=== PATIENT | male | born 1985 | race Caucasian/White ===

== ENCOUNTER 2017-11-06 08:08 | Day surgery (SDC) | payer BC ==
[~2017-11-06 08:08] MED LIST: Buffered Lidocaine 0.9% SYRIN* 5 ML/SYR SYRINGE INTRADERM ONE; Famotidine TAB* 20 MG PO ONE; Metoclopramide TAB* 10 MG PO ONE
[2017-11-06] MEDS ORDERED: Metoclopramide TAB* 10 MG ONE (08:23)
[2017-11-06] MEDS ORDERED: Famotidine IV* 10 MG/ML 2 ML (20 mg) ONE (08:23)
[2017-11-06] MEDS ORDERED: Clindamycin 900 MG IVPREMIX(* 900 MG/50 ML SDV IV ONE (08:23)
[2017-11-06] MEDS ORDERED: Famotidine TAB* 20 MG ONE (08:45)
[2017-11-06] MEDS ORDERED: Ondansetron INJ* 2 MG/ML VIAL ONE ×2 (09:56→12:01)
[2017-11-06] MEDS ORDERED: Ketorolac INJ* 30 MG/ML 1 ML VIAL ONE ×2 (09:56→12:01)
[2017-11-06] MEDS ORDERED: Dexamethasone IV* 4 MG/ML 1 ML (4 MG) ONE ×2 (09:56→12:01)
[2017-11-06] MEDS ORDERED: Lidocaine 2% PF * 5 ML VIAL ONE ×2 (09:56→12:00)
[2017-11-06] MEDS ORDERED: fentaNYL* 50 MCG/ML 2 ML VIAL (100 MCG VIAL) ONE ×4 (09:56→13:47)
[2017-11-06] MEDS ORDERED: Midazolam* 1 MG/ML 5 ML VIAL (5 MG) ONE ×2 (09:56→09:57)
[2017-11-06] MEDS ORDERED: KETAMINE HCL* 50 MG/ML 10 ML VIAL ONE ×2 (09:56→09:57)
[2017-11-06] MEDS ORDERED: Propofol* 10 MG/ML 20 ML BTL IV PUSH ONE ×2 (09:56→12:01)
[2017-11-06] MEDS ORDERED: Ropivacaine (OR use only) 2 MG/ML 10 ML ONE (11:37)
[2017-11-06] MEDS ORDERED: Morphine VIAL* 10 MG/ML 1 ML VIAL ONE (11:44)
[2017-11-06] MEDS ORDERED: Bupivacaine 0.25% SDV* 30 ML ONE (12:00)
[2017-11-06] MEDS ORDERED: oxyCODONE/Acetamin 5/325 MG* TAB PO PRN (13:14)
[2017-11-06] MEDS ORDERED: DiMENhydriNATE IV* 50 MG/ML VIAL IV PUSH PRN (13:14)
[2017-11-06] MEDS ORDERED: Morphine INJ* 2 MG/ML 1 ML SYRINGE (TWO MG - NEW SYRINGE VERSION) IV PRN (13:14)
[2017-11-06] MEDS ORDERED: Naloxone* 0.4 MG/ML 1 ML VIAL IV PRN (13:14)
[2017-11-06] MEDS ORDERED: PROCHLORPERAZINE INJ 5 MG/ML 2 ML VIAL IV PRN (13:14)
[2017-11-06] MEDS: fentaNYL* 50 MCG/ML 2 ML VIAL (100 MCG VIAL) IV PRN ×4 (13:47→14:24)
[2017-11-06 16:18] VITALS: BP 140/79
--- NOTE | 2017-11-07 01:48 | OP ---
DATE OF OPERATION: 11/06/17 - [facility] DATE OF : 81 SURGEON: Markell Chan MD [employer] TE[employer]ER: Jaquelin Chung PA-C PRE-OP DIAGNOSES: Left planovalgus deformity hindfoot, previous posterior tibial construction. POST-OP DIAGNOSES: Left planovalgus deformity hindfoot, previous posterior tibial construction. OPERATIVE PROCEDURE: Left subtalar fusion with calcaneal osteotomy and tibial bone graft and a cotton osteotomy. DESCRIPTION OF PROCEDURE: The patient was taken to the operating room where a lateral longitudinal incision was made over the sinus tarsi. The peroneal tendons were mobilized so that we could perform the calcaneal osteotomy. There were since performed from lateral to medial using a microsagittal saw inferior to peroneal tendons. We displaced the ostectomy 4 cm medially pinning this partially with the guide pin for the 6.7 screws. We then prepared the subtalar joint for arthrodesis using the power elaine, packing some cancellous bone, allograft and small amount of allograft from the tibial tubercle. Tibial tubercle harvest was performed as follows. At Gerdy's tubercle a 4 cm oblique incision was made and we split the periosteum over the tubercle. A power elaine was used to open the lateral cortex and then we harvested cancellous bone with the medium size curette. We packed allograft into the defect then once the bone was harvested closing the periosteum subcu with 2-0 Vicryl and antolin for the skin. We then advanced the pin across the subtalar joint up into the head of the talus. We put in additional screws well using the guidepin parallel. Both the pin positions were verified on C-arm. We then exchanged with the 6.7 mm cannulated screws, one over a washer giving excellent compression and fixation of both surgery areas. We then closed the lateral wound with 0 Vicryl sutures. We did perform a partial calcaneal ostectomy, superficial to the osteotomy to decompress the sub-fibular area. [place] were applied in the skin and Prolene sutures for the heel. We then made a longitudinal incision over the first metatarsal and created an osteotomy at this level. I removed a small wedge with the base on the planter aspect closing this down over some of the allograft. Arthrex plate was then placed over the dorsal side with the lag screw through the plate. Combination of fixation of locking and nonlocking screws were performed and this showed good fixation clinically. We then closed this wound with Vicryl sutures, nylon and compression dressing, plaster splint was applied. [id number]/[facility] #: [id number] [place]
== END 2017-11-06 16:21 | disposition home or self-care (01) ==
LOC: OR 08:08
PROVIDERS: ATTEND Orthopaedic Surgery
DX: Q66.52 Congenital pes planus, left foot (principal); G47.33 Obstructive sleep apnea (adult) (pediatric); G44.029 Chronic cluster headache, not intractable; E66.9 Obesity, unspecified; I10 Essential (primary) hypertension; K21.9 Gastro-esophageal reflux disease without esophagitis; K76.0 Fatty (change of) liver, not elsewhere classified
CPT/HCPCS: A9270-GY; C1713; C1776; C9359; J1100; J1885; J2250; J2270; J2405; J2704; J2795; J3010

== ENCOUNTER 2018-07-02 06:40 | Day surgery (SDC) | payer BC ==
[~2018-07-02 06:40] MED LIST changes: -Buffered Lidocaine 0.9% SYRIN* 5 ML/SYR SYRINGE INTRADERM ONE; +Buffered Lidocaine 1% SYRIN* 1 ML/SYRINGE INTRADERM ONE; +Dexamethasone IV* 4 MG/ML 1 ML (4 MG) IV SLOW PU ONE; +Lactated Ringers 1000 ML Bag* 1,000 ML IV SCH; +Metoclopramide IV* 5 MG/ML 2 ML VIAL IV SLOW PU ONE; -Metoclopramide TAB* 10 MG PO ONE
[2018-07-02] MEDS ORDERED: Metoclopramide IV* 5 MG/ML 2 ML VIAL ONE (07:09)
[2018-07-02] MEDS ORDERED: Dexamethasone IV* 4 MG/ML 1 ML (4 MG) ONE (07:09)
[2018-07-02] MEDS ORDERED: Clindamycin 900 MG IVPREMIX(* 900 MG/50 ML SDV IV ONE (07:10)
[2018-07-02] MEDS ORDERED: Famotidine TAB* 20 MG ONE (07:10)
[2018-07-02] MEDS ORDERED: Buffered Lidocaine 1% SYRIN* 1 ML/SYRINGE INTRADERM ONE (07:41)
[2018-07-02] MEDS ORDERED: Midazolam* 1 MG/ML 2 ML VIAL (2 MG) ONE (08:00)
[2018-07-02] MEDS ORDERED: Propofol* 10 MG/ML 20 ML BTL ONE ×2 (08:00→10:00)
[2018-07-02] MEDS ORDERED: Succinylcholine* 20 MG/ML 10 ML VIAL ONE (08:00)
[2018-07-02] MEDS ORDERED: fentaNYL* 50 MCG/ML 2 ML VIAL (100 MCG VIAL) ONE ×2 (08:00→09:34)
[2018-07-02] MEDS ORDERED: Lidocaine 2% PF * 5 ML VIAL ONE (08:00)
[2018-07-02] MEDS ORDERED: Bupivacaine 0.5%* 50 ML VIAL ONE (09:00)
[2018-07-02] MEDS ORDERED: DiMENhydriNATE IV* 50 MG/ML VIAL IV PUSH PRN (09:05)
[2018-07-02] MEDS ORDERED: Ibuprofen TAB* 600 MG PO PRN (09:05)
[2018-07-02] MEDS ORDERED: fentaNYL* 50 MCG/ML 2 ML VIAL (100 MCG VIAL) IV PRN (09:05)
[2018-07-02] MEDS ORDERED: Acetaminophen TAB* 325 MG PO PRN (09:05)
[2018-07-02] MEDS ORDERED: HYDROmorphone INJ1* 1 MG/ML SYRINGE IV PRN (09:05)
[2018-07-02] MEDS ORDERED: Naloxone* 0.4 MG/ML 1 ML VIAL IV PRN (09:05)
[2018-07-02] MEDS ORDERED: HYDROcodone/ACETAMIN 5-325 MG* 1 TAB PO PRN (09:05)
[2018-07-02] MEDS ORDERED: Rocuronium* 10 MG/ML VIAL ONE (09:32)
[2018-07-02] MEDS ORDERED: Sugammadex * 200 MG/2 ML VIAL IV PUSH ONE (09:55)
[2018-07-02] MEDS ORDERED: Ondansetron INJ* 2 MG/ML VIAL ONE (09:55)
[2018-07-02] MEDS ORDERED: Ibuprofen TAB* 600 MG ONE (10:59)
[2018-07-02] MEDS ORDERED: HYDROcodone/ACETAMIN 5-325 MG* 1 TAB ONE (10:59)
[2018-07-02 12:56] VITALS: BP 116/77
--- NOTE | 2018-07-02 23:03 | OP ---
DATE OF OPERATION: 07/02/18 - [facility] DATE OF : 81. ATTENDING SURGEON: Dr. Markell Chan. MACHINE CANDLE MOLDER: Jaquelin Chung PA-C. PRE-OP DIAGNOSIS: Painful hardware, left heel and midfoot, left foot. POST-OP DIAGNOSIS: Painful hardware, left heel and midfoot, left foot. OPERATIVE PROCEDURE: Removal of hardware, left heel and left midfoot. DESCRIPTION OF PROCEDURE: The patient was taken to the operating room where we probed the heel on the left side with a guidepin. We located the heads of the two 6.5 mm cannulated screws, both were cannulated with a guidepin and then a small 2-cm incision made. We removed both screws as well as the washer. Closure consisted of interrupted 2-0 Prolene vertical mattress sutures. A longitudinal incision was made over the midfoot as well and by reflecting the flap dorsally, we were able to isolate the first metatarsal plate. This was removed with a small star screwdriver. The wound was then irrigated and closed with interrupted Monocryl and nylon for the skin, a compression dressing applied. [id number]/[facility] #: [id number] [facility]ITAL[facility]
--- NOTE | 2018-07-03 11:24 | PN ---
Progress Note - Progress Note Date of Service: 07/03/18 Note: Anestheisa Follow-up: Mr. Durand is a 33 y/o male who underwent a left foot hardware removal under general anesthesia with endotracheal tube intubation on 07/02/18. With a follow- up phone call the pt stated that "both of his eyes are red and that one of his teeth is chipped". Upon further questioning the pt states that this morning he noticed that both of his eyes are inflammed, but he denies visionary changes such as blurry vision or double vision and denies eye pain. He also states that his front left incisor is chipped (#9). The pt's emergence had no serious events, however he did have significant bucking against the ventilator during stage II of emergence. Based on the pt's BMI, early attempts of having the pt breathe spontaneously without ventilator support led to episodes of rapid O2 desaturation (This is expected with significantly obese people as their pulmonary reserve is decreased and significant weight on their chest leads to a restrictive pulmonary pathology). Emergence was optimized by having the pt on 100% FiO2 and being placed in reverse-trendelenburg position. It is possible that during this time period the pt may have sustained bilateral subconjunctival hemorrhage due to increased intra-ocular pressure during emergence. The pt was reassured that this type of ocular pathology resolves spontaneously in a few days to weeks and that if he begins to experience visionary changes or pain to please call us so we could refer to him an opthalmologist for a proper examination. In regards to the pt's chipped tooth #9, the pt's dentition was questionable as he had tooth #8 missing already. The pt's airway was difficult with a direct laryngoscopy and the pt required video laryngoscopy to secure his airway. The intbuation was atraumatic to teeth. It is possible that the pt may have sustained dental injury during emergence as well. Measures were taken to protect this patient's teeth using an oropharyngeal airway as a bite block to prevent the pt biting down on his tounge or damaging teeth, but dental injury may have still occured. The pt was given the number to our office if he decides to have a dentist look and possibly repair that specific tooth and that [facility] may help with partial of full reimbursement of repair of tooth #9. Ok Mandujano MD
== END 2018-07-02 12:45 | disposition home or self-care (01) ==
LOC: OR 06:40
PROVIDERS: ATTEND Orthopaedic Surgery
DX: T84.84XA Pain due to internal orthopedic prosthetic devices, implants and grafts, initial encounter (principal); Y83.1 Surgical operation with implant of artificial internal device as the cause of abnormal reaction of the patient, or of later complication, without mention of misadventure at the time of the procedure; Z47.2 Encounter for removal of internal fixation device; Z98.1 Arthrodesis status; G47.33 Obstructive sleep apnea (adult) (pediatric); K21.9 Gastro-esophageal reflux disease without esophagitis
CPT/HCPCS: 88300; A9270-GY; J0330; J1100; J2250; J2405; J2704; J2765; J3010

== ENCOUNTER 2018-07-17 14:27 | Emergency (ER) | payer BC ==
--- OUTSIDE RECORDS SUMMARY | 2018-07-17 14:45 | XMS REPORT | Continuity of Care Document ---
:1985 External Reference #:[id number] Author Name Blake Gardner M.D. Address [address] [place] [address] Care Team Providers Name Role Phone Karin Be M.D. Primary Care Physician Unavailable Payers Date Identification Numbers Payment Provider Subscriber Policy Number: [id number] [facility] Blue Durand PayID: [id number] [id number] [place] [id number] Advance Directives Description No Information Available Problems Active Problems Provider Date Cluster headache Onset: Gastroesophageal reflux disease Onset: Non-alcoholic fatty liver Onset: Squamous blepharitis Blake Gardner M.D. Onset: 07/13/2018 Conjunctival hemorrhage Blake Gardenr M.D. Onset: 07/13/2018 Family History Date Family Member(s) Observation Comments Father No Current Problems Mother No Current Problems Social History Type Date Description Comments Sex Unknown Marital Status Legal Status: Occupation [employer] Work Status Full-Time Employment ETOH Use Rarely consumes alcohol Tobacco Use Start: Unknown Patient has never smoked Smoking Status Reviewed: 07/13/18 Patient has never smoked Allergies, Adverse Reactions, Alerts Active Allergies Reaction Severity Comments Date Omeprazole 07/13/2018 Amoxicillin 07/13/2018 Penicillin 07/13/2018 Azithromycin 07/13/2018 Medications Description No Information Immunizations Description No Information Available Vital Signs Description No Information Available Results Description No Information Available Procedures Description No Information Available Encounters Description No Information Available Plan of Treatment 07/13/2018 - Blake Gardner M.D.H11.33 Conjunctival hemorrhage, bilateralComments:Smoking can increase the risk of developing or worsening any eye related disease, as well as affect your overall health. If you are a smoker , we strongly recommend that you quit.If you are not a smoker, we strongly recommend that you do not start. A conjunctival hemorrhage is a broken blood vessel on the surface of your eye usually caused by dryness or straining. It is like a bruise and it is not harmful. If the eye is uncomfortable at all, we recommend you use tear drops.H01.021 Squamous blepharitis right upper eyelidComments:Dr. Gardner has diagnosed you with Blepharitis. This is common condition and can be managed with a few simple steps each day. -Use artificial tear drops throughout the day. Because the tear film is evaporating quicker than normal, you will need to supplement with tear drops to keep the ocular surface comfortable. -Use a lid scrub to remove debris from the lashes. [employer] is a brand we recommend to use.-Examine your environment. The weather for the area we live in often goes from one extreme to the other, forcing us to use air conditioners and heaters often. This can dry the air in the house out, so sometimes using a humidifier can help your ocular surface as well.H01.024 Squamous blepharitis left upper ctiqdvJ93.022 Squamous blepharitis right lower [id number] Squamous blepharitis left lower eyelid
--- OUTSIDE RECORDS SUMMARY | 2018-07-17 14:45 | XMS REPORT | Continuity of Care Document ---
:1985 External Reference #:[id number] Author Name John Boykinalana Care Team Providers Name Role Phone Karin Be MD Primary Care Physician Unavailable Payers Date Identification Numbers Payment Provider Subscriber Effective: 2014 Policy Number: [id number] [employer]ets Papo Pierce PayID: [id number] [address] [address] [place] [address] Expires: 2013 Policy Number: [id number] Elfego Pierce Onset: 2010 PayID: [id number] [address] [place] [address] Effective: 2013 Policy Number: [id number] Romeroawa Pierce Expires: 2014 Group Name: [id number] [address] PayID: [id number] [place] [address] Advance Directives Description No Information Available Problems Date Description Provider Status Onset: 03/17/2015 Cluster headache Debbi Wright MD Active Onset: 03/17/2015 Obstructive sleep apnea syndrome Debbi Wright MD Active Family History Date Family Member(s) Observation Comments General diabetes General Migraine paternal grandmother General Stroke General Cancer General Non Viral Hepatitis General Dad had back pain Onset: (2014) (age Father Alive And Well 65 Years) Father Hypertension Father Migraine Onset: (2014) (age Mother Alive And Well 65 Years) Siblings 3 Siblings sister has ankylosing spondylitis Social History Type Date Description Comments Sex Unknown Lives With Occupation Currently Working Occupation 02/2015 [employer]. no children ETOH Use Denies alcohol use Tobacco Use Start: Unknown Patient has never smoked Recreational Drug Use Denies Drug Use Smoking Status Reviewed: 06/19/18 Patient has never smoked Exercise Type/Frequency Exercises regularly 4 days a week - weightlifting, 3 days a week - stationary bike 30mins Allergies, Adverse Reactions, Alerts Date Description Reaction Status Severity Comments 12/20/2012 Amoxicillin Active 12/20/2012 Penicillin Active 12/20/2012 Zithromax Active 02/19/2015 Omeprazole Active 02/19/2015 Amoxicillin Inactive Medications Medication Date Status Form Strength Qnty SIG Indications Ordering Provider Knee Scooter Active use as T84.84xA Markell 9 needed for Leora Chan non-weightbe aring Roller Walker Active Misc use for Q66.6 Markell 8 partial Leora Chan weight bearing Q66.52 Verapamil HCL 06/09/2016 Active Caps ER 200mg 30caps take one G44.009 Randy ER 24HR capsule by robert Balbuena MD every day Lansoprazole Active Capsules 30mg 1 tab po Unknown a day [facility] Fluticasone Active Suspension 50mcg/ Inhale 2 Unknown Proprionate Act Puffs Both Nasal Canal Point Sides Once Per Day Azelastine HCL Active Solution 0.15% one puff Unknown (Nasal) both sides twice a day Triamcinolone Active Powder prn bid Unknown Mcfp, Micronized Oxycodone HCL 11/06/2017 - Hx Tablets 5mg 30tabs 1 tabs by Markell 12/25/2017 mouth Dustin, every 4-6 M.D. hours as needed Verapamil HCL 04/25/2016 - Hx Caps ER 180mg 30caps 1 by mouth G44.Renae Werner ER 06/09/2016 24HR every day MD Adriana Verapamil HCL 09/30/2015 - Hx Caps ER 200mg 30caps take 1 by G44.009 Jaun S. ER 04/25/2016 24HR mouth cherelle Garcia M.DRadha Multivitamin 06/16/2015 - Hx Tablets 1 by mouth Debbi Adult 12/25/2017 daily MD Adriana Verapamil HCL 03/17/2015 - Hx Tablets 40mg 150tabs 2 by mouth G44.009 Keeley Denise 10/15/2015 every Stackman, morning, 2 M.D. every afternoon and 1 every night at bedtime No Active 04/10/2013 - Hx Unknown Medications 06/04/2013 Oxycodone HCL 12/20/2012 - Hx Tablets 5mg 60tabs take 1-2 Markell 04/10/2013 tabs po q Dustin, 4-6 hours M.D. prn pain Acid Keyboard Specialist - Hx Unknown 07/23/2013 Ibuprofen - Hx 200mg prn (not Unknown 10/20/2015 currently taking) Verapamil HCL - Hx Tablets 40mg 1 by mouth Unknown 03/17/2015 twice a day Fluticasone - Hx Suspension 50mcg/ 2 sprays Unknown Propionate 02/24/2015 Act each nostril daily as needed Famotidine - Hx Tablets 20mg take one Unknown 06/15/2015 tablet by mouth prn Magnesium - Hx Capsules 400mg 1 tab po Unknown 10/25/2017 once a day Immunizations Description No Information Available Vital Signs Date Vital Result Comment 06/19/2018 9:31am Height 69 inches 5'9" Weight 312.00 lb Heart Rate 72 /min BP Systolic Sitting 132 mmHg BP Diastolic Sitting 82 mmHg Body Temperature 97.4 F Pain Level 0 BMI (Body Mass Index) 46.1 kg/m2 06/05/2018 8:14am Height 69 inches 5'9" Weight 305.00 lb Heart Rate 68 /min BP Systolic 140 mmHg BP Diastolic 74 mmHg Respiratory Rate 18 /min Body Temperature 97.6 F Pain Level 4 BMI (Body Mass Index) 45.0 kg/m2 05/18/2018 11:37am Height 69 inches 5'9" Weight 305.00 lb Heart Rate 78 /min BP Systolic Sitting 130 mmHg BP Diastolic Sitting 82 mmHg Respiratory Rate 16 /min BMI (Body Mass Index) 45.0 kg/m2 05/08/2018 8:06am Height 69 inches 5'9" Heart Rate 72 /min BP Systolic 126 mmHg BP Diastolic 78 mmHg Body Temperature 97.3 F Pain Level 4 03/22/2018 11:11am Height 69 inches 5'9" Heart Rate 68 /min BP Systolic 126 mmHg BP Diastolic 82 mmHg Body Temperature 97.9 F Pain Level 4 02/20/2018 9:19am Height 69 inches 5'9" Heart Rate 60 /min BP Systolic 120 mmHg BP Diastolic 88 mmHg Body Temperature 98.0 F Pain Level 0 01/23/2018 8:31am Height 69 inches 5'9" Weight 288.00 lb Heart Rate 88 /min Respiratory Rate 18 /min Body Temperature 98.1 F Pain Level 0 BMI (Body Mass Index) 42.5 kg/m2 12/26/2017 11:40am Height 69 inches 5'9" Weight 288.00 lb Heart Rate 80 /min BP Systolic 132 mmHg BP Diastolic 82 mmHg Respiratory Rate 20 /min Body Temperature 97.5 F Pain Level 0 BMI (Body Mass Index) 42.5 kg/m2 12/08/2017 8:28am Height 69 inches 5'9" Heart Rate 52 /min Respiratory Rate 12 /min Body Temperature 97.4 F Pain Level 0 11/21/2017 8:55am Height 69 inches 5'9" Weight 300.00 lb Heart Rate 86 /min BP Systolic 134 mmHg BP Diastolic 78 mmHg Respiratory Rate 14 /min Body Temperature 99.6 F Pain Level 3 BMI (Body Mass Index) 44.3 kg/m2 10/26/2017 9:52am Height 69 inches 5'9" Weight 303.25 lb Heart Rate 76 /min BP Systolic 124 mmHg BP Diastolic 70 mmHg Respiratory Rate 12 /min Body Temperature 98.9 F Pain Level 0 BMI (Body Mass Index) 44.8 kg/m2 09/26/2017 8:31am Height 69 inches 5'9" Heart Rate 75 /min BP Systolic 128 mmHg BP Diastolic 82 mmHg Respiratory Rate 16 /min Body Temperature 98.0 F Pain Level 2 07/20/2017 9:56am Height 69 inches 5'9" Weight 311.00 lb BP Systolic 140 mmHg BP Diastolic 90 mmHg Respiratory Rate 16 /min Body Temperature 97.7 F Pain Level 2 BMI (Body Mass Index) 45.9 kg/m2 05/03/2017 11:11am Height 69 inches 5'9" Weight 319.00 lb Heart Rate 72 /min BP Systolic 134 mmHg BP Diastolic 88 mmHg BMI (Body Mass Index) 47.1 kg/m2 11/08/2016 9:07am Height 69 inches 5'9" Weight 296.00 lb with shoes Heart Rate 66 /min BP Systolic Sitting 126 mmHg LA lrg cuff BP Diastolic Sitting 88 mmHg LA lrg cuff BMI (Body Mass Index) 43.7 kg/m2 Ejection Fraction 60%-65% echo 04 10/24/2016 2:23pm Height 69 inches 5'9" Weight 290.00 lb Heart Rate 74 /min BP Systolic Sitting 132 mmHg BP Diastolic Sitting 78 mmHg Respiratory Rate 16 /min BMI (Body Mass Index) 42.8 kg/m2 04/25/2016 2:20pm Height 69 inches 5'9" Weight 290.00 lb Heart Rate 56 /min BP Systolic Sitting 126 mmHg BP Diastolic Sitting 80 mmHg Respiratory Rate 14 /min BMI (Body Mass Index) 42.8 kg/m2 11/05/2015 11:18am Height 69 inches 5'9" Weight 302.50 lb Heart Rate 72 /min BP Systolic Sitting 126 mmHg BP Diastolic Sitting 80 mmHg Respiratory Rate 14 /min Body Temperature 98.0 F Pain Level 5 BMI (Body Mass Index) 44.7 kg/m2 10/21/2015 11:20am Height 69 inches 5'9" Weight 301.25 lb with shoes Heart Rate 72 /min BP Systolic Sitting 142 mmHg LA lrg cuff BP Diastolic Sitting 78 mmHg LA lrg cuff BP Systolic Recheck 127 mmHg BP Diastolic Recheck 76 mmHg BMI (Body Mass Index) 44.5 kg/m2 Ejection Fraction 60%-65% echo 07/13/15 10/15/2015 10:52am Height 69 inches 5'9" Weight 301.12 lb Heart Rate 76 /min BP Systolic Sitting 124 mmHg BP Diastolic Sitting 80 mmHg Respiratory Rate 14 /min Body Temperature 98.0 F Pain Level 1 BMI (Body Mass Index) 44.5 kg/m2 09/30/2015 11:10am Height 69 inches 5'9" Weight 300.00 lb Heart Rate 68 /min BP Systolic Sitting 126 mmHg BP Diastolic Sitting 88 mmHg Respiratory Rate 14 /min BMI (Body Mass Index) 44.3 kg/m2 06/24/2015 3:51pm Height 69 inches 5'9" Weight 315.00 lb w/shoes Heart Rate 88 /min BP Systolic Sitting 140 mmHg LA lg cuff BP Diastolic Sitting 76 mmHg LA lg cuff BP Systolic Recheck 118 mmHg la repeat sitting BP Diastolic Recheck 79 mmHg la repeat sitting BMI (Body Mass Index) 46.5 kg/m2 Ejection Fraction 55-60 echo 04/02/15 06/16/2015 10:20am Height 69 inches 5'9" Weight 310.00 lb Patient reported Heart Rate 72 /min BP Systolic Sitting 142 mmHg BP Diastolic Sitting 76 mmHg Respiratory Rate 16 /min BMI (Body Mass Index) 45.8 kg/m2 03/17/2015 9:21am Height 69 inches 5'9" Weight 310.00 lb Heart Rate 68 /min BP Systolic Sitting 132 mmHg BP Diastolic Sitting 88 mmHg Respiratory Rate 14 /min BMI (Body Mass Index) 45.8 kg/m2 02/25/2015 2:25pm Height 69 inches 5'9" Weight 318.00 lb with shoes Heart Rate 80 /min BP Systolic 140 mmHg Ra lg cuff BP Diastolic 100 mmHg Ra lg cuff BP Systolic Sitting 132 mmHg LA lg cuff BP Diastolic Sitting 98 mmHg LA lg cuff Respiratory Rate 17 /min BMI (Body Mass Index) 47.0 kg/m2 12/04/2013 2:18pm Height 69 inches 5'9" Weight 295.00 lb Pain Level 9 BMI (Body Mass Index) 43.6 kg/m2 10/03/2013 2:11pm Height 69 inches 5'9" Weight 295.00 lb Heart Rate 56 /min BMI (Body Mass Index) 43.6 kg/m2 09/05/2013 1:16pm Height 69 inches 5'9" Weight 295.00 lb Pain Level 4 BMI (Body Mass Index) 43.6 kg/m2 08/15/2013 1:21pm Height 69 inches 5'9" Weight 295.00 lb Heart Rate 80 /min BMI (Body Mass Index) 43.6 kg/m2 08/07/2013 2:13pm Height 69 inches 5'9" Weight 295.00 lb Body Temperature 98.7 F BMI (Body Mass Index) 43.6 kg/m2 07/24/2013 3:16pm Height 69 inches 5'9" Weight 320.00 lb Heart Rate 80 /min BP Systolic 139 mmHg BP Diastolic 83 mmHg BMI (Body Mass Index) 47.3 kg/m2 07/16/2013 1:55pm Height 69 inches 5'9" Weight 300.00 lb Heart Rate 74 /min BP Systolic 140 mmHg BP Diastolic 81 mmHg BMI (Body Mass Index) 44.3 kg/m2 06/04/2013 2:33pm Height 69 inches 5'9" Weight 300.00 lb Heart Rate 78 /min BP Systolic 129 mmHg BP Diastolic 81 mmHg BMI (Body Mass Index) 44.3 kg/m2 05/23/2013 1:57pm Height 69 inches 5'9" Weight 300.00 lb Heart Rate 80 /min BP Systolic 141 mmHg BP Diastolic 82 mmHg BMI (Body Mass Index) 44.3 kg/m2 12/20/2012 2:41pm Height 69 inches 5'9" Weight 280.00 lb Heart Rate 81 /min BP Systolic 143 mmHg BP Diastolic 88 mmHg BMI (Body Mass Index) 41.3 kg/m2 Results Test Date Facility Test Result H/L Range Note Xray 05/31/[address] [facility] [address] Extremity <pending> [address] [place] [address] [phone] Laboratory test 11/06/2017 [facility] Cancellous Block SEE RESULTS 1, [address] [place] [address] NOTE> [phone] Cancellous Chips 5cc SEE RESULTS BELO <SEE NOTE> 3 DBX 2.5 SEE RESULTS BELO <SEE NOTE> 4 Urinalysis Profile 11/05/2015 [facility] Urine Color Yellow N [address] [place], [place] [id number] [phone] Urine Appearance Clear N Urine Specific [place] 1.021 N 1.010-1.030 Urine pH 7.0 N 5-9 Urine Urobilinogen Negative N Negative Urine Ketones Negative N Negative Urine Protein Negative N Negative Urine Leukocytes Negative N Negative Urine Blood Negative N Negative Urine Nitrite Negative N Negative Urine Bilirubin Negative N Negative Urine Glucose Negative N Negative Laboratory test 09/07/2015 [facility] Surgical SEE RESULT [address] [place] [address] [phone] Surgical 07/29/2013 [facility] S RUN DATE: [address] 07/30/ <[place] [address] NOTE> [phone] DBX 2.5 12/24/2012 [facility] DBX 2.5 [id number] <SEE NOTE> [place] [address] [phone] Cancellous Chips 12/24/2012 [facility] Cancellous Chips [id number] 5cc <SEE NOTE> [place] [address] [phone] 1 COGENITAL PES PLANUS, LEFT FOOT 2 SEE RESULTS BELOW [id number] CAN BLOCK TRANSFUSED 11/06/17 1159 3 SEE RESULTS BELOW [id number] CANC CHIPS 5CC TRANSFUSED 11/06/17 1159 [id number] CANC CHIPS 5CC TRANSFUSED 11/06/17 1159 4 SEE RESULTS BELOW [id number] DBX 2.5 TRANSFUSED 11/06/17 1159 5 SEE RESULT BELOW Name: PIERCEPAPO : [address]: Jarred Bustillos MD Acct: [id number] Unit: [id number] AGE: 30 Location: Re09/07/15 SEX: M Status: REG REF SPEC: [id number] STEPHANIE: 09/07/15-[address] [facility] DR: Sarath Cota MD REQ: [id number] RECD: 09/07/15-115 STATUS: DENNY LARSEN DR: Jarred Bustillos MD _ ORDERED: TRICHROME STAIN, LEVEL V FINAL DIAGNOSIS Liver, core biopsy: -- Chronic steatohepatitis (grade 0, stage 0); see comment. COMMENT: Histologic sections show cores of liver parenchyma with mild steatosis and minimal chronic inflammation surrounding portal tracts. Hepatocyte necrosis is absent. There is no evidence of significant bile duct inflammation or bile duct damage. There does not appear to be significant hemosiderin or bile pigment deposition. A trichrome stain, with appropriately reacting controls, shows normal-appearing portal tracts with no evidence of significant fibrosis. The histologic differential diagnosis includes alcoholic and non-alcoholic steatohepatitis and viral hepatitis. Clinical-pathologic correlation is recommended. PRE-OPERATIVE DIAGNOSIS R94.5, abnormal liver function studies GROSS DESCRIPTION The specimen is received in formalin with no source identified and a requisition labeled, Liver, and consists of a 1.5 x 0.1 cm oneill soft tissue core, which is submitted entirely in one cassette. Signed (signature on file) Hillary Hebert MD 1035 END OF REPORT * ML=Testing performed at Main Lab DEPARTMENT OF PATHOLOGY, [facility] [place], [place] [address] Rene Vladez M.D. Director [facility] # [id number] RUN DATE: 07/30/13 [facility] LAB LIVE PAGE 1 RUN TIME: 1636 [facility] [employer], [place] [address] Specimen Inquiry Name: PAPO PIERCE : [address]: Markell Chan MD Acct: [id number] Unit: [id number] AGE: 28 Location: OR Re07/29/13 SEX: M Status: REG [facility] SPEC: [id number] STEPHANIE: 07/29/13- SUBM DR: Markell Chan MD REQ: [id number] RECD: 07/29/13-1223 STATUS: DENNY LARSEN DR: No Primary Care Phys,NOPCP _ ORDERED: LEVEL I FINAL DIAGNOSIS Right ankle and mid foot, hardware removal: Foreign bodies (orthopedic hardware) as described below (Gross diagnosis). PRE-OPERATIVE DIAGNOSIS Painful hardware right foot. GROSS DESCRIPTION The specimen is received in formalin labeled Papo BarrieRadha Pierce, Hardware Right Ankle and Mid Foot and consists of two, 8.0 cm. silver metallic partially threaded Harvey headed screws. Received separately in the same container are four, gold metallic, threaded Harvey headed screws ranging from 1.7 cm. to 2.1 cm. in length. Received separately in the same container is a 1.3 x 0.1 cm. circular, silver metallic washer. Received separately in the same container is a 2.4 x 1.1 x 0.1 cm. green metallic irregular plate with five 0.3 cm. circular holes. The following inscription is identified [id number]. Per established hospital medical staff protocol no tissue is submitted. Gross only. Signed (signature on file) Hillary Hebert MD 1636 END OF REPORT * ML=Testing performed at Main Lab DEPARTMENT OF PATHOLOGY, [address] [place] [address] Rene Valdez M.D. Director [facility] # [id number] 7 [id number] DBX 2.5 TRANSFUSED 12/25/12 1433 8 [id number] CANC CHIPS 5CC TRANSFUSED 12/25/12 1433 [id number] CANC CHIPS 5CC TRANSFUSED 12/25/12 1433 Procedures Date Code Description Status 12/08/2017 90664 Short Leg Cast Completed 11/21/2017 91593 Short Leg Cast Completed 11/06/2017 50541 Artrodesis Subtalar Completed 11/06/2017 97295 Artrodesis Subtalar Completed 11/06/2017 26837 Osteotomy Tarsal Bones Completed 11/06/2017 66385 Osteotomy Tarsal Bones Completed 11/06/2017 Bone Graft Any Donor Area Minr Or SM (Eg Dowel Or Button) Completed 11/06/2017 Bone Graft Any Donor Area Minr Or SM (Eg Dowel Or Button) Completed 07/18/2017 84617 Biopsy Skin Lesion Single Completed 11/08/2016 52795 EKG Tracing & Interpretation Completed 10/21/2015 44861 EKG Tracing & Interpretation Completed 07/13/2015 69165 ECHO Transthoracic, Real-Time 2D With Doppler And Color Completed Flow 06/24/2015 36214 EKG Tracing & Interpretation Completed 04/02/2015 81485 ECHO Transthoracic, Real-Time 2D With Doppler And Color Completed Flow 04/01/2015 86799 ECHO Stress Test Incl Perf Contiuous ekg Monitoring W/Phys Completed Superv 02/25/2015 88181 EKG Tracing & Interpretation Completed 12/04/2013 17972 Rad Exam; Ankle Comp Completed 07/29/201366819 Removal Implant Deep Wire,Screw Nail,Monty Or Plate Completed 07/29/201383433 Removal Implant Deep Wire,Screw Nail,Monty Or Plate Completed 07/29/201365738 Removal Implant Deep Wire,Screw Nail,Monty Or Plate Completed 05/23/2013 15710 Rad Exam; Foot Limited Completed 04/10/2013 26760 Rad Exam; Foot Comp Completed 02/22/2013 61814 Rad Exam; Foot Comp Completed 02/22/2013 57392 Walking Cast Completed 01/18/2013 20475 Short Leg Cast Completed 01/04/2013 90750 Short Leg Cast Completed 12/25/201223533 Bone Graft, Any Donor Area Major Or Large Completed 12/25/201218540 Bone Graft, Any Donor Area Major Or Large Completed 12/25/2012 31214 Osteotomy Tarsal Bones Completed 12/25/2012 33359 Osteotomy Tarsal Bones Completed 12/25/2012 87021 Artrodesis Subtalar Completed 12/25/201299805 Artrodesis Subtalar Completed 11/12/2012 42770 Rad Exam; Foot Limited Completed 11/12/2012 33502 Rad Exam; Foot Limited Completed 11/12/2012 39973 Rad Exam; Ankle Comp Completed 11/12/2012 42252 Rad Exam; Ankle Comp Completed Encounters Type Date Location Provider Dx Diagnosis Office Visit 06/05/2018 [facility] T84.84xA Pain due to 8:00a Lona Chan M.D. internal orthopedic prosth dev/grft, init Office Visit 05/18/2018 [facility] Randy Balbuena G44.009 Cluster headache 11:30a Clinic syndrome, unspecified, not intractable Office Visit 05/08/2018 [facility] Q66.52 Congenital pes 8:00a Leora Evans, left foot Office Visit 03/22/2018 [facility] Q66.52 Congenital pes 10:45a Leora Evans, left foot Office Visit 02/20/2018 [facility] Q66.52 Congenital pes 8:45a Leora Evans, left foot M76.822 Posterior tibial tendinitis, left leg Office Visit 10/26/2017 9:45a [facility] [id number] Congenital pes Services Of Leora Evans, left foot Office Visit 09/26/2017 8:45a [facility] 66.Sheree Congenital pes Services Of Leora Evans, left foot Office Visit 07/26/2017 10:30a [facility] Kalin Goldman, L20.84 Intrinsic (allergic) eczema Office Visit 07/20/2017 9:30a [facility] M19.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 unspecified E66.9 Obesity, unspecified I10 Essential (primary) hypertension R94.31 Abnormal electrocardiogram [ECG] [EKG] Office Visit 10/24/2016 [facility] Debbi G44.009 Cluster headache 2:00p Ruy Wright MD syndrome, unspecified, not intractable G47.33 Obstructive sleep apnea (adult) (pediatric) Office Visit 04/25/2016 2:30p [facility] Debbi Wright G44.009 Cluster headache Services Of Director Of [employer] Research MD syndrome, unspecified, not intractable G47.33 Obstructive sleep apnea (adult) (pediatric) Office Visit 11/05/2015 11:20a Rheumatology Blake Leblanc R76.0 Raised antibody Services Of Director Of [employer] M.D. titer Office Visit 10/21/2015 11:40a [facility] Josh Adams R07.9 Chest painSuzie M.D. unspecified Office Visit 10/15/2015 11:00a Rheumatology Radha Kuhn6.0 Raised antibody Services Of [employer] Of [employer] M.D. titer M79.1 Myalgia K75.81 Nonalcoholic steatohepatitis (Reyes) M54.5 Low back pain L50.8 Other urticaria Office Visit 09/30/2015 11:00a [facility] Debbi Wright G44.009 Cluster headache Services Of Director Of [employer] MD syndrome, unspecified, not intractable G47.33 Obstructive sleep apnea (adult) (pediatric) Office Visit 06/24/2015 3:20p [facility] Josh Adams R06.02 Shortness of Leora Larsen breath E66.01 Morbid (severe) obesity due to excess calories I11.9 Hypertensive heart disease without heart failure R07.9 Chest pain, unspecified R01.1 Cardiac murmur, unspecified Office Visit 06/16/2015 10:30a [facility] Debbi Wright G44.009 Cluster headache Services Of Director Of [employer] MD syndrome, unspecified, not intractable G47.33 Obstructive sleep apnea (adult) (pediatric) Office Visit 03/17/2015 9:30a [facility] Debbi Wright G44.009 Cluster headache Services Of Director Of [employer] Research MD syndrome, unspecified, not intractable G47.33 Obstructive sleep apnea (adult) (pediatric) Office Visit 02/25/2015 2:20p [facility] Josh Adams R06.02 Shortness of MaLeora ramirez breath E66.01 Morbid (severe) obesity due to excess calories I10 Essential (primary) hypertension Office Visit 12/04/2013 [facility] Jonas5.17 Osteoarthrosis 2:15p Services Of Leora Chan Localized Prim Ankle [facility] Foot Office Visit 07/16/2013 [facility] Evans.17 Osteoarthrosis 2:15p Services Of Leora Chan Localized Prim Ankle [facility] Office Visit 06/04/2013 [facility] Evans.17 Osteoarthrosis 2:15p Services Of Leora Chan Localized Prim Ankle [facility] Office Visit 05/23/2013 [facility] Evans.17 Osteoarthrosis 2:00p Services Of Leora Chan Localized Prim Ankle [facility] Office Visit 04/10/2013 [facility] Evans.17 Osteoarthrosis 3:15p Services Of Leora Chan Localized Prim Ankle [facility] Office Visit 12/10/2012 [facility] 719.47 Pain Joint Ankle & 2:45p Services Of Leora Chan Foot [facility] 719.47 Pain Joint Ankle & Foot Office Visit 11/12/2012 8:15a [facility] Chan 719.47 Pain Joint Of Roger.MWillard [facility]y [facility]le [facility] Foot 719.47 Pain Joint Ankle & Foot Plan of Treatment Future Appointment(s):07/12/2018 8:15 am - [facility] M.D. at [facility]07/02/2018 8:30 am - ROSHNI Sanders at [facility]07/02/2018 8:30 am - [facility] Chan M.D. at [facility]06/19/2018 - [facility] Chan M.D.T84.84xA Pain due to internal orthopedic prosthetic devices, implantsNew Medication:Knee Scooter - use as needed for non-weightbearingFollow up:10-14 days postop
--- OUTSIDE RECORDS SUMMARY | 2018-07-17 14:45 | XMS REPORT | Continuity of Care Document ---
:1985 External Reference #:[id number] Author Name Amy Pan Care Team Providers Name Role Phone Karin Be MD Primary Care Physician Unavailable Payers Date Identification Numbers Payment Provider Subscriber Effective: 2014 Policy Number: [id number] [employer] Papo Pierce PayID: [id number] [address] [address] [place] [address] Expires: 2013 Policy Number: [id number] [employer] Papo Pierce Onset: 2010 PayID: [id number] [address] [place] [address] Effective: 2013 Policy Number: [id number] Romeroawa Pierce Expires: 2014 Group Name: [id number] [address] PayID: [id number] [place] [address] Advance Directives Description No Information Available Problems Active Problems Provider Date Cluster headache Debbi Wright MD Onset: 03/17/2015 Obstructive sleep apnea syndrome Debbi Wright MD Onset: 03/17/2015 Family History Date Family Member(s) Observation Comments [...] With Occupation Currently Working Occupation 02/2015 [employer]. no children ETOH Use Denies alcohol use Tobacco Use Start: Unknown Patient has never smoked Recreational Drug Use Denies Drug Use Smoking Status Reviewed: 07/12/18 Patient has never smoked Exercise Type/Frequency Exercises regularly 4 days a week - weightlifting, 3 days a week - stationary bike 30mins Allergies, Adverse Reactions, Alerts Active Allergies Reaction Severity Comments Date Amoxicillin 12/20/2012 Penicillin 12/20/2012 Zithromax 12/20/2012 Omeprazole 02/19/2015 Inactive Allergies Amoxicillin 02/19/2015 Medications Active Medications SIG Qnty Indications Ordering Provider Date Knee Scooter use as needed for T84.84xA Markell Chan, 06/19/2018 non-weightbearing M.D. Roller Walker use for partial Q66.6 Markell Chan, 12/26/2017 [facility] [place] M.D. Q66.52 Verapamil HCL ER take one capsule 30caps G44.009 Randy Balbuena MD 2016 200mg Caps by mouth every ER 24HR day Lansoprazole 1 tab po a day Unknown 30mg Capsules [facility] Fluticasone Inhale 2 Puffs Unknown Proprionate Nasal Warren Both Sides Once Per Day 50mcg/Act Suspension Azelastine HCL (Nasal) one puff both Unknown 0.15% sides twice a day Solution Triamcinolone prn bid Unknown [facility], Micronized Powder History Medications Oxycodone HCL 1 tabs by mouth 15tabs Markell Chan, 07/02/2018 - 5mg every 4-6 hours M.D. 07/11/2018 Tablets as needed Oxycodone HCL 1 tabs by mouth 30tabs Markell Chan, 11/06/2017 - 5mg every 4-6 hours M.D. 12/25/2017 Tablets as needed Verapamil HCL ER 1 by mouth every 30caps G44.009 Debbi Wright MD 2016 - day 06/09/2016 180mg Caps ER 24HR Verapamil HCL ER take 1 by mouth 30caps G44.009 Jaun Ng 09/30/2015 - daily Leora Garcia 04/25/2016 200mg Caps ER 24HR Multivitamin Adult 1 by mouth daily Debbi Wright MD 06/16/2015 - 12/25/2017 Tablets Verapamil HCL 2 by mouth every 150tabs G44.009 Keeley Denise 03/17/2015 - 40mg morning, 2 every Leora Hogan 10/15/2015 Tablets afternoon and 1 every night at bedtime No Active Unknown 04/10/2013 - Medications 06/04/2013 Oxycodone HCL take 1-2 tabs po 60tabs Markell Chan, 12/20/2012 - 5mg q 4-6 hours prn Leora 04/10/2013 Tablets pain Acid Sports Coordinator Unknown - 07/23/2013 Ibuprofen prn (not Unknown - 200mg currently taking) 10/20/2015 Verapamil HCL 1 by mouth twice Unknown - 40mg a day 03/17/2015 Tablets Fluticasone 2 sprays each Unknown - Propionate nostril daily as 02/24/2015 50mcg/Act needed Suspension Famotidine take one tablet Unknown - 20mg by mouth prn 06/15/2015 Tablets Magnesium 1 tab po once a Unknown - 400mg day 10/25/2017 Capsules Immunizations Description No Information Available Vital Signs Date Vital Result Comment 07/12/2018 8:17am Height 69 inches 5'9" Heart Rate 60 /min BP Systolic 142 mmHg BP Diastolic 90 mmHg Respiratory Rate 16 /min Body Temperature 98.0 F Pain Level 0 06/19/2018 9:31am Height 69 inches 5'9" Weight [...] Date Facility Test Result H/L Range Note Laboratory test 07/02/2018 [facility] Surgical SEE RESULT [address] [address] [phone] Xray 05/31/2018 [facility] CT Extremity <pending> [address] [place] [address] [phone] Laboratory test 11/06/2017 [facility] Cancellous Block SEE RESULTS 2, [address] BELO <[place] [address] NOTE> [phone] Cancellous Chips 5cc SEE RESULTS BELO <SEE NOTE> 4 DBX 2.5 SEE RESULTS BELO <SEE NOTE> 5 Urinalysis Profile 11/05/2015 [facility] Urine Color Yellow N [address] [place] [address] [phone] Urine Appearance Clear N Urine Specific Sinton 1.021 N 1.010-1.030 Urine pH 7.0 N 5-9 Urine Urobilinogen Negative N Negative Urine Ketones Negative N Negative Urine Protein Negative N Negative Urine Leukocytes Negative N Negative Urine Blood Negative N Negative Urine Nitrite Negative N Negative Urine Bilirubin Negative N Negative Urine Glucose Negative N Negative Laboratory test 09/07/2015 [facility] Surgical SEE RESULT [address] [place] [address] [phone] Surgical 07/29/2013 [facility] S RUN DATE: [address] [place] [address] NOTE> [phone] Cancellous Chips 12/24/2012 [facility] Cancellous Chips [id number] 5cc <SEE NOTE> [place] [address] [phone] DBX 2.5 12/24/2012 [facility] DBX 2.5 [id number] [address] <SEE NOTE> ONI Daugherty [phone] 1 SEE RESULT BELOW Name: PAP[place] PIER[place] : [address]: Markell Chan MD Acct: [id number] Unit: [id number] AGE: 33 Location: OR Re07/02/18 SEX: M Status: [facility] [place] SPEC: [id number] STEPHANIE: 07/02/18- [facility] DR: Markell Chan MD REQ: [id number] RECD: 07/02/18 STATUS: SOUT _ ORDERED: LEVEL 1 FINAL DIAGNOSIS Ankle, left, hardware removal: Foreign body (orthopedic hardware) (gross diagnosis) PRE-OPERATIVE DIAGNOSIS Pain due to internal orthopedic prosthetic devices GROSS DESCRIPTION The specimen is received fresh labeled, Left Ankle Hardware, and consists of seven screws, one washer and one plate as follows: Three purple metallic stellate headed fully threaded screws ranging from 2.3 x 0.5 cm to 3.3 x 0.5 cm, to phelps metallic stellate headed fully threaded screws measuring 2.0 by up to 0.5 cm and 3.0 by up to 0.5 cm, two partially threaded stellate headed luminal screws measuring 8.7 by up to 0.8 cm with a 0.3 cm central lumen. Washer: Phelps metallic and convex cylindrical senior medical writer measuring 1.4 external diameter 0.3 cm wall thickness, 0.7 cm internal diameter and a thickness of up to 0.3 cm. Plate: blue metallic focally perforated convex ovoid plate measuring 4.0 by up to 1.3 x 0.2 cm. There is an inscription on the lateral surface which reads [id number] Arthrex, the inscription on the medial surface reads [id number]. Per established hospital medical staff protocol, no tissue is submitted. Gross only. Signed by and Reported on: Hillary Hebert MD 07/03/18 1014 END OF REPORT DEPARTMENT OF PATHOLOGY, [address] [place] [address] Rene Valdez M.D. Director [facility] # [id number] 2 COGENITAL PES PLANUS, LEFT FOOT 3 SEE RESULTS BELOW [id number] CAN BLOCK TRANSFUSED 11/06/17 115 4 SEE RESULTS BELOW [id number] CANC CHIPS 5CC TRANSFUSED 11/06/17 1159 [id number] CANC CHIPS 5CC TRANSFUSED 11/06/17 1159 5 SEE RESULTS BELOW [id number] DBX 2.5 TRANSFUSED 11/06/17 1159 6 SEE RESULT BELOW Name: P[place] : [address]: Jarred Bustillos MD Acct: [id number] Unit: [id number] AGE: 30 Location: Re09/07/15 SEX: M Status: REG REF SPEC: [id number] STEPHANIE: 09/07/15-10[address] [facility] [address]: Sarath Cota MD REQ: [id number] RECD: 09/07/15-1150 STATUS: DENNY LARSEN DR: Jarred Bustillos MD [...] performed at Main Lab DEPARTMENT OF PATHOLOGY, [facility] [place][note 2] [employer] [place] [address] Rene Valdez M.D. Director [place] # [id number] RUN DATE: 07/30/13 [facility] LAB LIVE PAGE 1 RUN TIME: 1636 [facility] [place][note 2] Referral.IM [place], [place] [address] Specimen Inquiry Name: PAP[place] PIERCE : [address]: Markell Chan MD Acct: [id number] Unit: [id number] AGE: 28 Location: OR Re07/29/13 SEX: M Status: REG MSC SPEC: [id number] STEPHANIE: 07/29/13- [facility] DR: Markell Chan MD REQ: [id number] RECD: 07/29/13-3 STATUS: DENNY LARSEN DR: Ch[facility] Primary Care Phys,NOPCP _ ORDERED: LEVEL I FINAL DIAGNOSIS Right ankle and mid foot, hardware removal: Foreign bodies (orthopedic hardware) as described below (Gross diagnosis). PRE-OPERATIVE DIAGNOSIS Painful hardware right foot. GROSS DESCRIPTION The specimen is received in formalin labeled Papo Pierce, Hardware Right Ankle and Mid Foot [...] circular holes. The following inscription is identified [id number]. Per established hospital medical staff protocol no tissue is submitted. Gross only. Signed (signature on file) Hillary Hebert MD 1636 END OF REPORT * ML=Testing performed at Main Lab DEPARTMENT OF PATHOLOGY, [address] [place] [address] Rene Valdez M.D. Director NAVEEN # [id number] CANC CHIPS 5CC TRANSFUSED 12/25/12 1433 [id number] CANC CHIPS 5CC TRANSFUSED 12/25/12 1433 9 [id number] DBX 2.5 TRANSFUSED 12/25/12 1433 Procedures Date Code Description Status 07/02/2018 Removal Implant Deep Wire,Screw Nail,Monty Or Plate Completed 07/02/2018 Removal Implant Deep Wire,Screw Nail,Monty Or Plate Completed 07/02/2018 Removal Implant Deep Wire,Screw Nail,Monty Or Plate Completed 12/08/2017 81762 Short Leg Cast Completed 11/21/2017 25074 Short Leg Cast Completed 11/06/2017 Bone Graft Any Donor Area Minr Or SM (Eg Dowel Or Button) Completed 11/06/2017 Bone Graft Any Donor Area Minr Or SM (Eg Dowel Or Button) Completed 11/06/2017 38225 Osteotomy Tarsal Bones Completed 11/06/2017 59869 Osteotomy Tarsal Bones Completed 11/06/2017 00573 Artrodesis Subtalar Completed 11/06/2017 60757 Artrodesis Subtalar Completed 07/18/2017 13886 Biopsy Skin Lesion Single Completed 11/08/2016 55617 EKG Tracing & Interpretation Completed 10/21/2015 98099 EKG Tracing & Interpretation Completed 07/13/2015 54185 ECHO Transthoracic, Real-Time 2D With Doppler And Color Completed Flow 06/24/2015 44601 EKG Tracing & Interpretation Completed 04/02/2015 87909 ECHO Transthoracic, Real-Time 2D With Doppler And Color Completed Flow 04/01/2015 25615 ECHO Stress Test Incl Perf Contiuous ekg Monitoring W/Phys Completed Superv 02/25/2015 44622 EKG Tracing & Interpretation Completed 12/04/2013 78454 Rad Exam; Ankle Comp Completed 07/29/2013 Removal Implant Deep Wire,Screw Nail,Monty Or Plate Completed 07/29/2013 Removal Implant Deep Wire,Screw Nail,Monty Or Plate Completed 07/29/2013 Removal Implant Deep Wire,Screw Nail,Monty Or Plate Completed 05/23/2013 74088 Rad Exam; Foot Limited Completed 04/10/2013 97216 Rad Exam; Foot Comp Completed 02/22/2013 16315 Rad Exam; Foot Comp Completed 02/22/2013 14495 Walking Cast Completed 01/18/2013 75553 Short Leg Cast Completed 01/04/2013 52305 Short Leg Cast Completed 12/25/2012 Bone Graft, Any Donor Area Major Or Large Completed 12/25/2012 Bone Graft, Any Donor Area Major Or Large Completed 12/25/2012 48762 Osteotomy Tarsal Bones Completed 12/25/2012 72594 Osteotomy Tarsal Bones Completed 12/25/2012 15803 Artrodesis Subtalar Completed 12/25/2012 Artrodesis Subtalar Completed 11/12/2012 99423 Rad Exam; Foot Limited Completed 11/12/2012 43573 Rad Exam; Foot Limited Completed 11/12/2012 23529 Rad Exam; Ankle Comp Completed 11/12/2012 48730 Rad Exam; Ankle Comp Completed Encounters Type Date Location Provider Dx Diagnosis Office Visit 06/05/2018 [facility] T84.84xA Pain due to 8:00a Lona hCan M.D. 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 unspecified E66.9 Obesity, unspecified I10 Essential (primary) hypertension R94.31 Abnormal electrocardiogram [ECG] [EKG] Office Visit 10/24/2016 [facility] Debbi G44.009 Cluster headache 2:00p Ruy Wright MD syndrome, unspecified, not intractable G47.33 Obstructive sleep apnea (adult) (pediatric) Office Visit 04/25/2016 2:30p [facility] Debbi Wright G44.009 Cluster headache [facility] [employer] MD syndrome, unspecified, not intractable G47.33 Obstructive sleep apnea (adult) (pediatric) Office Visit 11/05/2015 11:20a Rheumatology Radha Kuhn6.0 Raised antibody [facility] [employer] [facility] M.D. titer Office Visit 10/21/2015 11:40a [facility] Josh Adams R07.9 Chest painSuzie M.D. unspecified Office Visit 10/15/2015 11:00a Rheumatology Radha Kuhn6.0 Raised antibody [facility] [employer] M.D. titer M79.1 Myalgia K75.81 Nonalcoholic steatohepatitis (Reyes) M54.5 Low back pain L50.8 Other urticaria Office Visit 09/30/2015 11:00a [facility] Debbi Wright G44.009 Cluster headache [facility] [employer] MD syndrome, unspecified, not intractable G47.33 Obstructive sleep apnea (adult) (pediatric) Office Visit 06/24/2015 3:20p [facility] Josh Adams R06.02 Shortness of Leora Larsen breath E66.01 Morbid (severe) obesity due to excess calories I11.9 Hypertensive heart disease without heart failure R07.9 Chest pain, unspecified R01.1 Cardiac murmur, unspecified Office Visit 06/16/2015 10:30a [facility] Debbi Wright G44.009 Cluster headache [facility] [employer] MD syndrome, unspecified, not intractable G47.33 Obstructive sleep apnea (adult) (pediatric) Office Visit 03/17/2015 9:30a [facility] Debbi Wright G44.009 Cluster headache [facility] [employer] MD syndrome, unspecified, not intractable G47.33 Obstructive sleep apnea (adult) (pediatric) Office Visit 02/25/2015 2:20p [facility] Josh Adams R06.02 Shortness of MaLeora ramirez breath E66.01 Morbid (severe) obesity due to excess calories I10 Essential (primary) hypertension Office Visit 12/04/2013 [facility] 715.17 Osteoarthrosis 2:15p [facility] Localized Prim Ankle [facility] Foot Office Visit 07/16/2013 [facility] Jonas5.17 Osteoarthrosis 2:15p [facility] Chan Localized Prim Ankle [facility] Foot Office Visit 06/04/2013 [facility] Evans.17 Osteoarthrosis 2:15p [facility] Leora Chan Localized Prim Ankle [facility] Foot Office Visit 05/23/2013 [facility] 715.17 Osteoarthrosis 2:00p [facility] Leora Chan Localized Prim Ankle [facility] Foot Office Visit 04/10/2013 [facility] Jonas5.17 Osteoarthrosis 3:15p [facility] Leora Chan Localized Prim Ankle [facility] Foot Office Visit 12/10/2012 [facility] 719.47 Pain Joint Ankle & 2:45p [facility]ora Chan Foot [facility] 719.47 Pain Joint Ankle & Foot Office Visit 11/12/2012 8:15a [facility] Chan 719.47 Pain Joint Of [facility]y [facility]le [facility] Foot 719.47 Pain Joint Ankle & Foot Plan of Treatment Future Appointment(s):08/02/2018 8:00 am - [facility] M.D. at [facility]07/12/2018 - [facility] Chan M.D.M20.21 Hallux rigidus, right footFollow up:3-4 yemexV77.84xA Pain due to internal orthopedic prosthetic devices, implants
[2018-07-17] MEDS ORDERED: NS 0.9% 1000 ML** 1,000 ML IV ONE ×2 (15:44→20:56)
[2018-07-17 16:20] LABS: ABS Basophils 0.1 10^3/ul (0-0.2); ABS Eosinophils 0.2 10^3/ul (0-0.6); ABS Lymphocytes 0.5 10^3/ul (1.0-4.8); ABS Monocytes 0.9 10^3/ul (0-0.8); ABS Neutrophils 15.9 10^3/ul (1.5-7.7); ABS Nucleated RBC 0 10^3/ul; Eosinophil % 1.1 %; Hematocrit 42 % (36-46); Hemoglobin 14.4 g/dL (14.0-18.0); Lymphocyte % 2.9 %; Mean Corpuscular HGB Conc 34 g/dL (31-36); Mean Corpuscular Hemoglobin 28 pg (27-31); Mean Corpuscular Volume 84 fL (80-94); Mean Platelet Volume 8.2 fL (7.4-10.4); Nucleated Red Blood Cells % 0; Platelet Count 210 10^3/uL (150-450); Red Blood Count 5.07 10^6 /uL (4.18-5.48); Red Cell Distribution Width 14 % (10.5-15); White Blood Count 17.6 10^3/uL (3.5-10.8)
[2018-07-17 16:34] LABS: ALT 412 U/L (7-52); AST 220 U/L (13-39); Albumin 3.8 g/dL (3.2-5.2); Albumin/Globulin Ratio 1.2 (1-3); Alkaline Phosphatase 115 U/L (34-104); Anion Gap 5 mmol/L (2-11); Blood Urea Nitrogen 10 mg/dL (6-24); C Reactive Protein 169.56 mg/L (<8.01); CO2 Carbon Dioxide 27 mmol/L (22-32); Calcium 8.5 mg/dL (8.6-10.3); Chloride 103 mmol/L (101-111); EGFR African American 91.2 (>60); EGFR Non-African American 75.4 (>60); Globulin 3.1 g/dL (2-4); Glucose 116 mg/dL (70-100); Potassium 3.7 mmol/L (3.5-5.0); Sodium 135 mmol/L (135-145); Total Protein 6.9 g/dL (6.4-8.9)
--- NOTE | 2018-07-17 22:47 | ED ---
Nausea/Vomiting/Diarrhea HPI - HPI Summary HPI Summary: Patient complains of persistent diarrhea up to 40 times a day starting Monday with associated diffuse mild abdominal cramping, fever up to 102.6, chills. States diarrhea has improved since yesterday. Denies blood in stool, cough, sore throat, PATINO, neck stiffness, CP, SOB, N/V, change in urine. Medical history is cluster headaches, GERD, fatty liver disease. Denies EtOH. Nonsmoker. Denies recent travel outside the country. Denies contact exposure. Denies long course of antibiotics, did have Cipro IV during ankle surgery on . - History of Current Complaint Chief Complaint: EDNauseaVomitDiarrh Stated Complaint: SEVERE DIARRHEA/FEVER/WEAKNESS PER PT Time Seen by Provider: 07/17/18 17:45 Hx Obtained From: Patient Onset/Duration: Sudden Onset, Lasting Days Timing: Constant Severity Initially: Mild Severity Currently: Mild Pain Intensity: 3 Pain Scale Used: 0-10 Numeric Location: Diffuse Character: Cramping Aggravating Factor(s): Nothing Alleviating Factor(s): Nothing Nausea/Vomiting Presence: None Diarrhea Presence: Yes Diarrhea Frequency: Every 15-60 minutes Diarrhea Characteristics: Watery - Allergies/Home Medications Allergies/Adverse Reactions: Allergies Allergy/AdvReac Type Severity Reaction Status Date / Time amoxicillin Allergy Severe Hives Verified 07/17/18 14:29 azithromycin Allergy Severe Hives Verified 07/17/18 14:29 omeprazole Allergy Severe Difficulty Verified 07/17/18 14:29 Breathing Penicillins Allergy Severe Hives Verified 07/17/18 14:29 latex Allergy Intermediate Rash Verified 07/17/18 14:29 BEE STINGS Allergy Severe LOCALIZED Uncoded 07/17/18 14:29 SWELLING ORANGES AND MIXED JUICES Allergy Severe FULL BODY Uncoded 07/17/18 14:29 RASH PMH/Surg Hx/FS Hx/Imm Hx Endocrine/Hematology History: Reports: Other Endocrine/Hematological Disorders - was told by GI doctor that he has abnormal liver enzyme levels Denies: Hx Diabetes, Hx Thyroid Disease Cardiovascular History: Denies: Hx Hypertension, Hx Pacemaker/ICD, Other Cardiovascular Problems/ Disorders Respiratory History: Reports: Hx Sleep Apnea Denies: Hx Asthma, Hx Chronic Obstructive Pulmonary Disease (COPD), Other Respiratory Problems/Disorders GI History: Reports: Hx Gastroesophageal Reflux Disease - CONTROL WITH MEDS, Hx Hiatal Hernia, Hx Irritable Bowel Denies: Hx Ulcer, Other GI Disorders History: Denies: Hx Dialysis, Hx Renal Disease, Other Problems/Disorders Musculoskeletal History: Reports: Hx Arthritis - OSTEOARTHRITIS RIGHT FOOT/ANKLE Sensory History: Reports: Hx Contacts or Glasses - GLASSES Denies: Hx Hearing Aid Opthamlomology History: Reports: Hx Contacts or Glasses - GLASSES Neurological History: Reports: Hx Headaches, Other Neuro Impairments/Disorders - cluster headaches, CONTROL WITH MED Psychiatric History: Reports: Hx Anxiety - IN HIGH SCHOOL Denies: Hx Panic Disorder - Cancer History Hx Chemotherapy: No - Surgical History Surgery Procedure, Year, and Place: 2010 & 2012: right ankle surgery; placement of hardware and removal of hardware ankle fracture. WISDOM TEETH, 2001. 2012 RIGHT FOOT BONE FROM KNEE AND HARDWARE AND REMOVED- [facility],. 10/2017 left foot ankle reconstruction. Hx Anesthesia Reactions: No Infectious Disease History: No Infectious Disease History: Denies: Hx Clostridium Difficile, Hx Hepatitis, Hx Human Immunodeficiency Virus (HIV), Hx of Known/Suspected MRSA, Hx Shingles, Hx Tuberculosis, Hx Known/ Suspected VRE, Hx Known/Suspected VRSA, History Other Infectious Disease, Traveled Outside the [place] in Last 30 Days - Family History Known Family History: Positive: Hypertension - father - Social History Alcohol Use: None Alcohol Amount: 2 DRINKS 1X MONTH Hx Substance Use: No Substance Use Type: Reports: None Hx Tobacco Use: No Smoking Status (MU): Never Smoked Tobacco Have You Smoked in the Last Year: No Review of Systems Positive: Fever Eyes: Negative ENT: Negative Cardiovascular: Negative Respiratory: Negative Positive: Abdominal Pain, Diarrhea Genitourinary: Negative Musculoskeletal: Negative Skin: Negative Neurological: Negative Psychological: Normal All Other Systems Reviewed And Are Negative: Yes Physical Exam - Summary Physical Exam Summary: Abdomen soft nontender. Lung sounds clear to auscultation bilaterally. RRR. Triage Information Reviewed: Yes Vital Signs On Initial Exam: Initial Vitals Temp Pulse Resp BP Pulse Ox 97.7 F 111 20 122/93 96 07/17/18 14:29 07/17/18 14:29 07/17/18 14:29 07/17/18 14:29 07/17/18 14:29 Vital Signs Reviewed: Yes Appearance: Positive: Well-Appearing Skin: Positive: Warm Head/Face: Positive: Normal Head/Face Inspection Eyes: Positive: Normal Neck: Positive: Supple Respiratory/Lung Sounds: Positive: Clear to Auscultation Cardiovascular: Positive: Normal Abdomen Description: Positive: Nontender Musculoskeletal: Positive: Normal Neurological: Positive: Normal Psychiatric: Positive: Normal AVPU Assessment: Alert - [place] Coma Scale Best Eye Response: 4 - Spontaneous Best Motor Response: 6 - Obeys Commands Best Verbal Response: 5 - Oriented Coma Scale Total: 15 Diagnostics - Vital Signs Vital Signs Temp Pulse Resp BP Pulse Ox 07/17/18 17:08 98.7 F 90 20 132/83 99 07/17/18 14:29 97.7 F 111 20 122/93 96 - Laboratory Lab Results: Lab Results 07/17/18 07/17/18 07/17/18 Range/Units 15:58 15:58 18:17 WBC 17.6 H (3.5-10.8) 10^3/uL RBC 5.07 (4.18-5.48) 10^6 /uL Hgb 14.4 (14.0-18.0) g/dL Hct 42 (36-46) % MCV 84 (80-94) fL MCH 28 (27-31) pg MCHC 34 (31-36) g/dL RDW 14 (10.5-15) % Plt Count 210 (150-450) 10^3/uL MPV 8.2 (7.4-10.4) fL Neut % (Auto) 90.4 % Lymph % (Auto) 2.9 % [place] % (Auto) 5.2 % Eos % (Auto) 1.1 % Baso % (Auto) 0.4 % Absolute Neuts (auto) 15.9 H (1.5-7.7) 10^3/ul Absolute Lymphs (auto) 0.5 L (1.0-4.8) 10^3/ul Absolute Monos (auto) 0.9 H (0-0.8) 10^3/ul Absolute Eos (auto) 0.2 (0-0.6) 10^3/ul Absolute Basos (auto) 0.1 (0-0.2) 10^3/ul Absolute Nucleated RBC 0 10^3/ul Nucleated RBC % 0 Sodium 135 (135-145) mmol/L Potassium 3.7 (3.5-5.0) mmol/L Chloride 103 (101-111) mmol/L Carbon Dioxide 27 (22-32) mmol/L Anion Gap 5 (2-11) mmol/L BUN 10 (6-24) mg/dL Creatinine 1.11 (0.67-1.17) mg/dL Est GFR ( Amer) 91.2 (>60) Est GFR (Non-Af Amer) 75.4 (>60) BUN/Creatinine Ratio 9.0 (8-20) Glucose 116 H (70-100) mg/dL Lactic Acid 0.9 (0.5-2.0) mmol/L Calcium 8.5 L (8.6-10.3) mg/dL Total Bilirubin 1.70 H (0.2-1.0) mg/dL AST 220 H (13-39) U/L ALT 412 H (7-52) U/L Alkaline Phosphatase 115 H (34-104) U/L C-Reactive Protein 169.56 H (<8.01) mg/L Total Protein 6.9 (6.4-8.9) g/dL Albumin 3.8 (3.2-5.2) g/dL Globulin 3.1 (2-4) g/dL Albumin/Globulin Ratio 1.2 (1-3) Lipase < 10 L (11.0-82.0) U/L Result Diagrams: 07/17/18 15:58 07/17/18 15:58 Lab Statement: Any lab studies that have been ordered have been reviewed, and results considered in the medical decision making process. Naus/Vom/Diarrhea Course/Dx - Course Course Of Treatment: Patient complains of persistent diarrhea up to 40 times a day starting Monday with associated diffuse mild abdominal cramping, fever up to 102.6, chills. States diarrhea has improved since yesterday. Denies blood in stool, cough, sore throat, PATINO, neck stiffness, CP, SOB, N/V, change in urine. Medical history is cluster headaches, GERD, fatty liver disease. Denies EtOH. Nonsmoker. Denies recent travel outside the country. Denies contact exposure. Denies long course of antibiotics, did have Cipro IV during ankle surgery on 07/02/18. Physical exam:Abdomen soft nontender. Lung sounds clear to auscultation bilaterally. RRR. Vital signs within normal limits. WBC 17. Elevated liver enzymes. History of fatty liver disease. Patient stool sample was formed, no C. difficile test was performed. 2 L normal saline were administered. No diarrhea here in the ED. No abdominal pain here in the ED. Patient stated he felt much better. Ultrasound of gallbladder and liver negative for choledocholithiasis or cholelithiasis, positive for mild CBD dilation up to [address] patient with Dr[address] Dean who recommended patient to be discharged and follow-up with GI. Patient understands and approves of plan. - Differential Dx/Diagnosis Provider Diagnosis: Diarrhea, Viral syndrome Condition At Discharge: Stable Discharge - Sign-Out/Discharge Documenting (check all that apply): Patient Departure Patient Received Moderate/Deep Sedation with Procedure: No - Discharge Plan Condition: Stable Disposition: HOME Patient Education Materials: Acute Diarrhea (ED) Referrals: Karin Be MD [Primary Care Provider] - Additional Instructions: Drink plenty of fluids to maintain hydration. Follow up with your GI doctor for further evaluation of a liver disease. Return to the ED for any new or worsening symptoms. - Billing Disposition and Condition Condition: STABLE Disposition: Home
[2018-07-17 22:57] VITALS: BP 121/68
[2018-07-18 09:54] LABS: Hepatitis B Surface Antigen Nonreactive (Nonreactive)
[2018-07-18 10:21] LABS: Hepatitis C Antibody Nonreactive (Nonreactive)
== END 2018-07-17 22:56 | disposition home or self-care (01) ==
LOC: ED 14:27
DX: R19.7 Diarrhea, unspecified (principal); B34.9 Viral infection, unspecified; K83.8 Other specified diseases of biliary tract; K21.9 Gastro-esophageal reflux disease without esophagitis; K44.9 Diaphragmatic hernia without obstruction or gangrene; K58.9 Irritable bowel syndrome, unspecified; G44.029 Chronic cluster headache, not intractable; Z88.3 Allergy status to other anti-infective agents; Z88.8 Allergy status to other drugs, medicaments and biological substances; Z88.0 Allergy status to penicillin; Z91.040 Latex allergy status; Z79.899 Other long term (current) drug therapy
CPT/HCPCS: 36415; 76705; 80053; 80074; 83605; 83690; 85025; 86140; 87040; 96360; 96361; 99283